=== PATIENT | male | born 1985 ===

== ENCOUNTER 2016-06-30 09:08 | Emergency (ER) | payer OTHER ==
[2016-06-30 09:35] VITALS: RESP 18; TEMP 97.8
--- NOTE | 2016-06-30 09:40 | C.PDOC ---
History Of Present Illness 51 yr old male presents to the ER with new onset of low back pain since morning. Patient states he got up from sitting, took 2 steps and felt the sudden onset of lower back pain. Patient states the pain is localized and worse with movement. Patient denies associated weakness or numbness, dysuria, incontinence, abdominal pain or diarrhea. NEW ONSET LBP THIS MORNING. PS GOT UP FROM SITTING, TOOK 2 STEPS THEN SUDDEN ONSET PAIN LOWER BACK. LOCALIZED WORSE W MOVEMENT. NO ASSOC WEAK NUMB. DENIES TRAUMA, PRIOR HO CHRONIC LBP. NO SMOKE, PMH EXAM MILD DIST NONTOXIC BACK REPRODUC PAIN W FLEXION. NO LS TEND. +MILD PARASPINAL TEND R LOWER LUMBAR. NO DEFORM NEURO INTACT ABD NEG SKIN NEG Time Seen by Provider: 06/30/16 09:31 Chief Complaint (Nursing): Back Pain History Per: Patient History/Exam Limitations: no limitations Onset/Duration Of Symptoms: Sudden Onset (since morning) Current Symptoms Are (Timing): Still Present Previous Symptoms: None Associated Symptoms: None Exacerbating Factor(s): Movement Recent travel outside of the [place]: No Past Medical History Reviewed: Historical Data, Nursing Documentation, Vital Signs Vital Signs: Last Vital Signs Temp 97.8 F 06/30/16 09:16 Pulse 69 06/30/16 10:55 Resp 18 06/30/16 10:55 BP 148/89 06/30/16 10:55 Pulse Ox 99 06/30/16 10:55 Surgical History: Appendectomy Family History: States: No Known Family Hx - Social History Hx Tobacco Use: No Hx Alcohol Use: No Hx Substance Use: No Review Of Systems Except As Marked, All Systems Reviewed And Found Negative. Gastrointestinal: Negative for: Abdominal Pain, Diarrhea Genitourinary: Negative for: Dysuria, Incontinence Musculoskeletal: Positive for: Back Pain (Low back pain) Neurological: Negative for: Weakness, Numbness Physical Exam - Physical Exam Appears: Non-toxic, In Acute Distress (Mild) Skin: Warm, Dry, No Rash Head: Atraumatic, Normacephalic Neck: Normal, Normal ROM, No Midline Cervical Tenderness, Supple Chest: Symmetrical, No Tenderness Cardiovascular: Rhythm Regular, No Murmur Respiratory: Normal Breath Sounds, No Rales, No Rhonchi, No Stridor, No Wheezing Back: Paraspinal Tenderness (Mild paraspinal tenderness right lower lumbar. ), Other ((+) Reproducible pain with flexion. (-) No LS tenderness. ) Extremity: Normal ROM, No Tenderness, No Deformity, No Swelling Neurological/Psych: Oriented x3, Normal Speech, Normal Motor ED Course And Treatment O2 Sat by Pulse Oximetry: 97 Pulse Ox Interpretation: Normal - Other Rad X-Ray - LS Spine X-Ray: Interpreted by Me, Viewed By Me Interpretation: Negative. Medical Decision Making Medical Decision Making: PLAN: * X-Ray - LS Spine * Toradol IM Disposition Counseled Patient/Family Regarding: Studies Performed, Diagnosis, Need For Followup, Rx Given - Disposition Referrals: Respiratory Medicine Physician Service [Outside] [facility] [Outside] Disposition: HOME/ ROUTINE Disposition Time: 10:28 Condition: IMPROVED Prescriptions: Cyclobenzaprine [Flexeril] 10 mg PO TID #15 tab Naproxen 500 mg PO BID #30 tab Instructions: Acute Low Back Pain (ED) Forms: Work Excuse Print Language: UPPER SORBIAN - Clinical Impression Clinical Impression: Low back strain - Scribe Statement The provider has reviewed the documentation as recorded by the Claudia García Provider Attestation: All medical record entries made by the Angeliibantolin were at my direction and personally dictated by me. I have reviewed the chart and agree that the record accurately reflects my personal performance of the history, physical exam, medical decision making, and the department course for this patient. I have also personally directed, reviewed, and agree with the discharge instructions and disposition.
--- NOTE | 2016-06-30 10:45 | RAD ---
PROCEDURE: Radiographs of the Lumbar Spine. HISTORY: NEW ONSET LUMBAR PAIN COMPARISON: None available. FINDINGS: BONES: Alignment appears satisfactory. No listhesis. No acute displaced fracture identified. Multilevel degenerative changes including prominent anterior osteophyte formation. DISC SPACES: Unremarkable. OTHER FINDINGS: Moderate constipation. IMPRESSION: No acute displaced fracture or subluxation identified. Degenerative changes. Moderate constipation.
[2016-06-30 10:56] VITALS: BP 148/89; PULSE 69
[2016-06-30 10:57] VITALS: O2SAT 97
== END 2016-06-30 10:56 | disposition home or self-care (01) ==
LOC: C.ER 09:08 → EDBD 09:08 → C.ER 10:56
DX: S39.012A Strain of muscle, fascia and tendon of lower back, initial encounter (principal); X58.XXXA Exposure to other specified factors, initial encounter